=== PATIENT | female | born 1975 | race Two or more races ===

== ENCOUNTER 2022-09-18 11:59 | Outpatient (REF) | payer SELFPAY ==
[2022-09-18 15:16] LABS: Syphilis Screen Nonreactive (Nonreactive)
[2022-09-20 20:14] LABS: TS Negative Control Passed; TS Panel A 0; TS Panel B 0; TS Positive Control Passed; TSpotTB Negative (Negative)
== END 2022-09-18 12:00 | disposition home or self-care (01) ==
LOC: HO.LAB 11:59
PROVIDERS: Visit Provider Internal Medicine
DX: Z00.00 Encounter for general adult medical examination without abnormal findings (principal)
CPT/HCPCS: 36415; 86481; 86780